=== PATIENT | female | born 1970 | race Caucasian/White ===

== ENCOUNTER 2018-11-12 20:10 | Emergency (ER) | payer MEDICAID, OTHER ==
[2018-11-12 20:11] VITALS: BMI 38.2
[2018-11-12 20:29] VITALS: RESP 16; O2SAT 100
[2018-11-12] MEDS ORDERED: Sodium Chloride 0.9% 1,000 ML IV STA (20:55)
--- NOTE | 2018-11-12 21:03 | ED PDOC ---
HPI: Abdomen Time Seen by Provider: 11/12/18 20:32 Chief Complaint (Nursing): Abdominal Pain Chief Complaint (Provider): Abdominal Pain History Per: Patient History/Exam Limitations: no limitations Onset/Duration Of Symptoms: Days Current Symptoms Are (Timing): Still Present Location Of Pain/Discomfort: Epigastric Quality Of Discomfort: Aching, Cramping Associated Symptoms: Chills, Nausea, Diarrhea. denies: Vomiting Additional Complaint(s): 47 y/o female with a PMHx of neurofibromitosis and CVA presents to the ED for evaluation of abdominal pain, onset last night. Patient reports pain is epigastric and non-radiating. Patient describes pain as aching/cramping and constant. Patient states pain is associated with 4-5 episodes of watery, non- bloody diarrhea this morning as well as loss of appetite, subjective fevers and chills. Otherwise, patient denies vomiting, urinary symptoms, vaginal discharge, vaginal bleeding, no known sick contacts and recent travel. PMD: no provider Past Medical History Reviewed: Historical Data, Nursing Documentation, Vital Signs Vital Signs: Last Vital Signs Temp 97.6 F 11/12/18 20:27 Pulse 111 H 11/12/18 20:27 Resp 16 11/12/18 20:27 BP 129/75 11/12/18 20:27 Pulse Ox 100 11/12/18 20:27 - Medical History PMH: CVA, Depression Denies: Chronic Kidney Disease Other PMH: neurofibromitosis, - Surgical History Other surgeries: Resections of mass on right brow and arm as well as a partial hysterectomy. - Family History Family History: States: No Known Family Hx - Social History Current smoker - smoking cessation education provided: No Alcohol: None Drugs: Denies - Home Medications Home Medications: Ambulatory Orders Medication Instructions Recorded Naproxen [Naprosyn] 500 mg PO Q12 PRN #30 tab 01/08/13 Dicyclomine [Bentyl] 20 mg PO QID PRN #20 tab 11/12/18 Ibuprofen [Motrin Tab] 600 mg PO Q8 PRN #30 tab 11/12/18 Omeprazole Magnesium [Prilosec Otc] 20 mg PO DAILY #30 tcp 11/12/18 - Allergies Allergies/Adverse Reactions: Allergies Allergy/AdvReac Type Severity Reaction Status Date / Time Penicillins Allergy SHORTNESS Verified 11/12/18 20:30 OF BREATH sumatriptan [From Imitrex] Allergy SHORTNESS Verified 11/12/18 20:30 OF BREATH Review of Systems ROS Statement: Except As Marked, All Systems Reviewed And Found Negative (as per HPI) Constitutional: Positive for: Fever, Chills Gastrointestinal: Positive for: Nausea, Abdominal Pain, Diarrhea, Other (loss of appetite). Negative for: Vomiting Genitourinary Female: Negative for: Dysuria, Frequency, Hematuria, Vaginal Discharge, Vaginal Bleeding Physical Exam - Reviewed Nursing Documentation Reviewed: Yes Vital Signs Reviewed: Yes - Physical Exam Appears: Positive for: Non-toxic, No Acute Distress Head Exam: Positive for: ATRAUMATIC, NORMOCEPHALIC Skin: Positive for: Warm, Dry Eye Exam: Positive for: EOMI, PERRL ENT: Positive for: Pharynx Is (clear), Other (dry mucous membrane) Neck: Positive for: Painless ROM, Supple Cardiovascular/Chest: Positive for: Regular Rate, Rhythm. Negative for: Murmur Respiratory: Positive for: Normal Breath Sounds. Negative for: Respiratory Distress Gastrointestinal/Abdominal: Positive for: Soft, Tenderness (Epigastric tenderne ss to palpation. No McBurney's Point Tenderness). Negative for: Mass, Distended, Guarding, Rebound, Other (Corrales's Sign) Back: Positive for: Normal Inspection. Negative for: Decreased ROM Extremity: Negative for: Deformity Lymphatic: Negative for: Adenopathy Neurological/Psych: Positive for: Awake, Alert. Negative for: Motor/Sensory Deficits - Laboratory Results Result Diagrams: 11/12/18 20:57 11/12/18 20:57 - ECG O2 Sat by Pulse Oximetry: 100 (RA) Pulse Ox Interpretation: Normal Medical Decision Making Medical Decision Making: Time: 2052 Impression: Abdominal pain and diarrhea Differentials include but not limited to gastroenteritis, pancreatitis, hepatitis, gall bladder disease and gastritis Plan: -- CMP -- Lipase -- ED Urine Dipstick -- ED Urine -- Bentyl 20 mg PO -- Dextrose 5%-0.9% NS IV 100 mls/hr -- Sodium Chloride IV 1000 mls/hr -- Zofran Inj 4 mg IVP -- IV Insertion -- US Gallbladder & Hepatic US Time: 2156 EXAM: US Abdomen complete CLINICAL HISTORY: Upper abd pain. TECHNIQUE: Real-time ultrasound of the abdomen (complete) with image documentation. COMPARISON: None provided. FINDINGS: LIVER: Unremarkable, measuring 15.6 cm in length. GALLBLADDER: several mobile gallstones are present. No gallbladder wall thickening. No pericholecystic fluid. COMMON BILE DUCT: No dilation, measuring 4 mm. PANCREAS: Unremarkable where visualized. The distal pancreas is obscured by overlying bowel gas. KIDNEYS: 11.8 x 4.7 by 5.1 cm right kidney. Unremarkable. Normal renal contours. No renal mass or calculus. No hydronephrosis. SPLEEN: Unremarkable. AORTA: No aneurysm. IVC: Unremarkable as visualized. MISCELLANEOUS: No other significant findings identified. IMPRESSION: Cholelithiasis. Electronically signed on Nov 12, 2018 9:57:24 PM EDT by: Sammie Hassan M.D., Certified by [employer], Diagnostic Radiology 10p Labs unremarkable Pt feels better. DW pt findings and plan of care. Stable for discharge with followup pmd/clinic. Scribe Attestation: Documented by Cookie Hutchison, acting as a scribe Cris Granados MD. Provider Scribe Attestation: All medical record entries made by the Scribe were at my direction and personally dictated by me. I have reviewed the chart and agree that the record accurately reflects my personal performance of the history, physical exam, medical decision making, and the department course for this patient. I have also personally directed, reviewed, and agree with the discharge instructions and disposition. Disposition - Clinical Impression Clinical Impression: Abdominal pain, Cholelithiasis - Disposition Referrals: [facility] [Outside] (CALL CLINIC TOMORROW TO SCHEDULE FOLLOWUP BY THE END OF THE WEEK. ONCE YOU START CARE AT THE CLINIC YOU WILL BE REFERRED TO [facility].) Disposition: Routine/Home Disposition Time: 23:34 Condition: STABLE Prescriptions: Dicyclomine [Bentyl] 20 mg PO QID PRN #20 tab PRN Reason: abdominal pain Ibuprofen [Motrin Tab] 600 mg PO Q8 PRN #30 tab PRN Reason: Pain, Moderate (4-7) Omeprazole Magnesium [Prilosec Otc] 20 mg PO DAILY #30 tcp Instructions: Acute Abdomen (Belly Pain), Adult (DC), Gallstones (DC) Forms: [facility] ED School/Work Excuse
[2018-11-12 21:11] LABS: BASO % 0.2 % (0.0-2.0); EOS % 0.1 % (0.0-4.0); HEMOGLOBIN 12.1 g/dL (12.0-16.0); LYMPH # 0.5 K/uL (1.0-4.3); MEAN CELL VOLUME 79.6 fl (81.0-99.0); MEAN CORPUSCULAR HEMOGLOBIN 26.5 pg (27.0-31.0); MEAN CORPUSCULAR HGB CONC 33.3 g/dL (33.0-37.0); MEAN PLATELET VOLUME 8.1 fl (7.2-11.7); MONO # 0.4 K/uL (0.0-0.8); MONO % 4.6 % (0.0-10.0); NEUT # 7.7 K/uL (1.8-7.0); NRBC % 0.1 % (0.0-0.0); PLATELET COUNT 251 K/uL (130-400); RBC 4.58 Mil/uL (3.80-5.20); RED CELL DISTRIBUTION WIDTH 15.3 % (11.5-14.5); WHITE BLOOD COUNT 8.6 K/uL (4.8-10.8)
[2018-11-12 21:14] LABS: LYMPH % 5.9 % (20.0-40.0); NEUT % 89.2 % (50.0-75.0)
[2018-11-12 21:17] LABS: ALB/GLOB RATIO 1.2 (1.0-2.1); ALBUMIN 4.2 g/dL (3.5-5.0); ALT/SGPT 34 U/L (9-52); AST/SGOT 23 U/L (14-36); BLOOD UREA NITROGEN 11 mg/dl (7-17); CALCIUM 8.5 mg/dL (8.4-10.2); GFR NON-AFRICAN AMERICAN > 60; LIPASE 69 U/L (23-300)
[2018-11-12] MEDS ORDERED: Potassium Chloride 20 mEq ER Tab PO STA (21:29)
[2018-11-12 22:09] LABS: PLATELET CLUMPS PRESENT; PLATELET ESTIMATE NORMAL (NORMAL); TOTAL CELLS COUNTED 100
[2018-11-12 22:10] LABS: BANDS 2 % (0-2); LYMPHOCYTE 7 % (20-50); MONOCYTE 4 % (0-10); NEUTROPHIL 87 % (42-75)
[2018-11-12] MEDS ORDERED: Alum-Mag Hydrox-Simethicone Susp (30 mL) PO STA (22:31)
[2018-11-12] MEDS ORDERED: Alum-Mag Hydrox-Simethicone Susp (30 mL) ONE (22:40)
[2018-11-12] MEDS ORDERED: Potassium Chloride 20 mEq ER Tab PO ONE (22:47)
[2018-11-13 00:05] VITALS: BP 127/76; PULSE 99; TEMP 99
--- NOTE | 2018-11-13 11:29 | US ---
Date of service: 11/12/2018 HISTORY: upper abdominal pain COMPARISON: None. TECHNIQUE: Sonographic evaluation of the right upper quadrant of the abdomen. FINDINGS: LIVER: Measures 15.5 cm in length. Patent portal and hepatic venous systems. Portal venous flow: Hepatopetal. echogenicity of the liver parenchyma. No mass. No intrahepatic bile duct dilatation. GALLBLADDER: Cholelithiasis. Negative study for gallbladder wall thickening, pericholecystic fluid, sonographic Corrales's sign. COMMON BILE DUCT: Measures 3.6 mm. No stones. No dilatation. PANCREAS: Unremarkable as visualized. No mass. No ductal dilatation. RIGHT KIDNEY: Measures 4.7 x 11.8 cm in length. Normal echogenicity. No calculus, mass, or hydronephrosis. AORTA: No aneurysmal dilatation. IVC: Unremarkable. OTHER FINDINGS: None . IMPRESSION: Cholelithiasis. No sonographic evidence of acute cholecystitis.
== END 2018-11-13 00:05 | disposition home or self-care (01) ==
LOC: H.ER 20:10
DX: R10.13 Epigastric pain (principal); K80.20 Calculus of gallbladder without cholecystitis without obstruction; Z88.0 Allergy status to penicillin; Z90.711 Acquired absence of uterus with remaining cervical stump
CPT/HCPCS: 76705; 80053; 81025; 83690; 85025; 96374; 99284; J2405; J7030